=== PATIENT | male | born 1995 | race Caucasian/White ===

== ENCOUNTER 2017-07-27 05:14 | Emergency (ER) | payer OTHER ==
[~2017-07-27] VITALS: Ht 185.4 cm; Wt 121.6 kg
[~2017-07-27 05:14] MED LIST: ALBUTEROL0.09 MG/A2 INH; ALLEGRA-D 24 H1 EACH PO; AMOXICILLIN500 MG PO; AUGMENTIN 875 M1 TAB PO; AVPAK AZITHROM250 M1 PO; CEFUROXIME AXE250 MG PO; CIPRODEX 0.3%-7.5 ML OT; CIPROFLOXACIN500 MG PO; CLARITIN10 MG PO; CORDROL20 MG PO; FLONASE 0.05% 121 EA NAS; FLONASE ALLERG9.9 ML NAS; HYCODAN 1.5 MG480 ML PO; MEDROL DOSEPAK4 MG PO; MELOXICAM7.5 MG PO; MOTRIN800 MG PO; NAPROSYN500 MG PO; NORCO 325 MG-51 TAB PO; OMEPRAZOLE40 MG PO; PARAFON FORTE500 MG PO; PHENERGAN W/DM120 ML PO; PREDNICOT20 MG PO; PREDNISONE10 MG PO; PROAIR HFA0.09 MG/AC IH; ROBITUSSIN AC 110 ML PO; TESSALON PERLE100 M1 PO; TESSALON PERLE200 MG PO; ULTRAM50 MG PO; VIBRAMYCIN100 MG PO; ZITHROMAX Z PA250 MG PO; ZITHROMAX Z-PA250 MG PO; ZOFRAN ODT4 MG SL; ZYRTEC10 MG PO; [UNRECOGNIZED DRUG - OTHER] PO
[2017-07-27 05:55] LABS: BASO % 0.3 % (0.0-1.0); EOS # 0.3 10*3/uL (0.0-0.4); EOS % 2.6 % (1.0-4.0); HEMATOCRIT 46.5 % (42.0-52.0); HEMOGLOBIN 16.4 g/dl (14.0-18.0); LYMPH # 2.1 10*3/uL (1.3-4.4); LYMPH % 20.5 % (27.0-41.0); MEAN CELL VOLUME 86.1 fl (80.0-94.0); MEAN CORPUSCULAR HGB 30.4 pg (27.0-31.0); MEAN CORPUSCULAR HGB CONC 35.3 g/dl (33.0-37.0); MEAN PLATELET VOLUME 9.8 fl (9.6-12.3); MONO # 0.7 10*3/uL (0.1-1.0); MONO % 6.6 % (3.0-9.0); NEUT # 7.2 10*3/uL (2.3-7.9); NEUT % 69.8 % (47.0-73.0); PLATELET COUNT AUTOMATED 291 10*3/uL (130-400); RED CELL DISTRI WIDTH 11.9 % (0-14.5); WHITE BLOOD COUNT 10.3 10*3/uL (4.8-10.8)
[2017-07-27 06:04] LABS: BILIRUBIN NEGATIVE (NEGATIVE); BLOOD NEGATIVE (NEGATIVE); CLARITY CLEAR (CLEAR); COLOR YELLOW (YELLOW); GLUCOSE NEGATIVE (NEGATIVE); KETONE NEGATIVE (NEGATIVE); LEUKO ESTERASE NEGATIVE (NEGATIVE); NITRITE NEGATIVE (NEGATIVE); PH 5.5 (5.0-9.0); SPECIFIC GRAVITY >= 1.030 (1.005-1.030); UROBILINOGEN 0.2 E.U./dl (0.2-1.0)
[2017-07-27 06:11] LABS: ALBUMIN 4.3 gm/dl (3.1-4.5); ALKALINE PHOSPHATASE 113 U/L (45-117); BUN 14 mg/dl (7-24); CHLORIDE 103 mmol/L (98-107); CREATININE 1.15 mg/dL (0.70-1.30); LIPASE 89 U/L (73-393); POTASSIUM 3.8 mmol/L (3.5-5.1); SGOT/AST 17 IU/L (3-35); SGPT/ALT 37 U/L (12-78); SODIUM 138 mmol/L (136-145); TOTAL PROTEIN 8.4 gm/dL (6.4-8.2)
[2017-07-27 06:13] LABS: BACTERIA 1+; MUCOUS 1+
[2017-07-27] MEDS ORDERED: MIRALAX POWDER17 G1 PO (08:30)
== END 2017-07-27 09:09 | disposition home or self-care (01) ==
LOC: ED 05:14
PROVIDERS: Emergency Medicine Emergency Medical Services
DX: R10.13 Epigastric pain (principal); Z79.899 Other long term (current) drug therapy; Z88.2 Allergy status to sulfonamides

== ENCOUNTER 2017-08-17 11:37 | Emergency (ER) | payer OTHER ==
[~2017-08-17] VITALS: Wt 121.6 kg
[~2017-08-17 11:37] MED LIST changes: +MIRALAX POWDER17 G1 PO
[2017-08-17] MEDS ORDERED: CIPROFLOXACIN 110 ML OPH (11:44)
[2017-08-17 12:03] LABS: BILIRUBIN NEGATIVE (NEGATIVE); BLOOD NEGATIVE (NEGATIVE); CLARITY SL CLOUDY (CLEAR); COLOR YELLOW (YELLOW); GLUCOSE NEGATIVE (NEGATIVE); KETONE NEGATIVE (NEGATIVE); LEUKO ESTERASE NEGATIVE (NEGATIVE); NITRITE NEGATIVE (NEGATIVE); PH 5.5 (5.0-9.0); SPECIFIC GRAVITY >= 1.030 (1.005-1.030); UROBILINOGEN 0.2 E.U./dl (0.2-1.0)
[2017-08-17 12:05] LABS: BASO % 0.3 % (0.0-1.0); EOS # 0.3 10*3/uL (0.0-0.4); EOS % 4.5 % (1.0-4.0); HEMATOCRIT 43.9 % (42.0-52.0); HEMOGLOBIN 15.3 g/dl (14.0-18.0); LYMPH # 1.6 10*3/uL (1.3-4.4); LYMPH % 23.9 % (27.0-41.0); MEAN CELL VOLUME 87.6 fl (80.0-94.0); MEAN CORPUSCULAR HGB 30.5 pg (27.0-31.0); MEAN CORPUSCULAR HGB CONC 34.9 g/dl (33.0-37.0); MEAN PLATELET VOLUME 9.6 fl (9.6-12.3); MONO # 0.6 10*3/uL (0.1-1.0); MONO % 9.7 % (3.0-9.0); NEUT % 61.4 % (47.0-73.0); PLATELET COUNT AUTOMATED 261 10*3/uL (130-400); RED BLOOD COUNT 5.01 10*6/uL (4.50-5.90); RED CELL DISTRI WIDTH 11.9 % (0-14.5); WHITE BLOOD COUNT 6.5 10*3/uL (4.8-10.8)
[2017-08-17 12:15] LABS: BACTERIA 1+; MUCOUS 4+; RBC 0-2 rbc/hpf (0-2)
[2017-08-17 12:21] LABS: ALBUMIN 3.8 gm/dl (3.1-4.5); ALKALINE PHOSPHATASE 97 U/L (45-117); BUN 11 mg/dl (7-24); CHLORIDE 106 mmol/L (98-107); CREATININE 1.01 mg/dL (0.70-1.30); LIPASE 75 U/L (73-393); POTASSIUM 3.6 mmol/L (3.5-5.1); SGOT/AST 18 IU/L (3-35); SGPT/ALT 28 U/L (12-78); SODIUM 141 mmol/L (136-145); TOTAL PROTEIN 7.4 gm/dL (6.4-8.2)
[2017-08-17] MEDS ORDERED: PEPCID20 MG PO (12:50)
[2017-08-17] MEDS ORDERED: Zofran4 MG PO (12:50)
== END 2017-08-17 14:07 | disposition home or self-care (01) ==
LOC: ED 11:37
PROVIDERS: Physician Assistant
DX: R11.2 Nausea with vomiting, unspecified (principal); R19.7 Diarrhea, unspecified; R10.84 Generalized abdominal pain; Z79.899 Other long term (current) drug therapy; Z88.2 Allergy status to sulfonamides

== ENCOUNTER 2017-09-23 12:56 | Emergency (ER) | payer OTHER ==
[~2017-09-23] VITALS: Ht 185.4 cm; Wt 117.9 kg
[~2017-09-23 12:56] MED LIST changes: +CIPROFLOXACIN 110 ML OPH; +PEPCID20 MG PO; +Zofran4 MG PO
[2017-09-23] MEDS ORDERED: AUGMENTIN 875875 MG PO (13:21)
[2017-09-23] MEDS ORDERED: DELTASONE20 M1 PO (13:21)
== END 2017-09-23 13:40 | disposition home or self-care (01) ==
LOC: ED 12:56
DX: J01.90 Acute sinusitis, unspecified (principal); J40 Bronchitis, not specified as acute or chronic; Z88.2 Allergy status to sulfonamides

== ENCOUNTER 2017-10-13 22:14 | Emergency (ER) | payer OTHER ==
[~2017-10-13] VITALS: Ht 185.4 cm; Wt 117.9 kg
[~2017-10-13 22:14] MED LIST changes: +AUGMENTIN 875875 MG PO; +DELTASONE20 M1 PO
[2017-10-13 22:40] LABS: BILIRUBIN NEGATIVE (NEGATIVE); BLOOD NEGATIVE (NEGATIVE); CLARITY CLEAR (CLEAR); COLOR YELLOW (YELLOW); GLUCOSE NEGATIVE (NEGATIVE); KETONE NEGATIVE (NEGATIVE); LEUKO ESTERASE NEGATIVE (NEGATIVE); NITRITE NEGATIVE (NEGATIVE); PH 5.5 (5.0-9.0); SPECIFIC GRAVITY 1.025 (1.005-1.030); UROBILINOGEN 0.2 E.U./dl (0.2-1.0)
[2017-10-13 22:47] LABS: BACTERIA TRACE; EPITHELIAL CELLS 0-2
[2017-10-13 23:09] LABS: BASO % 0.5 % (0.0-1.0); EOS # 0.4 10*3/uL (0.0-0.4); EOS % 5.4 % (1.0-4.0); HEMATOCRIT 42.5 % (42.0-52.0); HEMOGLOBIN 14.9 g/dl (14.0-18.0); LYMPH % 27.3 % (27.0-41.0); MEAN CELL VOLUME 86.9 fl (80.0-94.0); MEAN CORPUSCULAR HGB 30.5 pg (27.0-31.0); MEAN CORPUSCULAR HGB CONC 35.1 g/dl (33.0-37.0); MEAN PLATELET VOLUME 9.6 fl (9.6-12.3); MONO # 0.5 10*3/uL (0.1-1.0); MONO % 7.2 % (3.0-9.0); NEUT # 4.4 10*3/uL (2.3-7.9); NEUT % 59.5 % (47.0-73.0); PLATELET COUNT AUTOMATED 246 10*3/uL (130-400); RED BLOOD COUNT 4.89 10*6/uL (4.50-5.90); RED CELL DISTRI WIDTH 11.5 % (0-14.5); WHITE BLOOD COUNT 7.4 10*3/uL (4.8-10.8)
[2017-10-13 23:15] LABS: CHLORIDE 105 mmol/L (98-107); POTASSIUM 3.8 mmol/L (3.5-5.1); SODIUM 140 mmol/L (136-145)
[2017-10-13 23:26] LABS: ALBUMIN 3.8 gm/dl (3.1-4.5); BUN 24 mg/dl (7-24); LIPASE 102 U/L (73-393)
[2017-10-13 23:30] LABS: ALKALINE PHOSPHATASE 93 U/L (45-117); CREATININE 1.17 mg/dL (0.70-1.30); SGOT/AST 26 IU/L (3-35); SGPT/ALT 50 U/L (12-78); TOTAL PROTEIN 7.2 gm/dL (6.4-8.2)
[2017-10-14] MEDS ORDERED: ZOFRAN ODT4 MG SL (00:23)
== END 2017-10-14 01:34 | disposition home or self-care (01) ==
LOC: ED 22:14
PROVIDERS: Emergency Medicine Emergency Medical Services; Physician Assistant
DX: R11.2 Nausea with vomiting, unspecified (principal); R51 Headache; R50.9 Fever, unspecified; F17.200 Nicotine dependence, unspecified, uncomplicated; Z88.2 Allergy status to sulfonamides

== ENCOUNTER 2017-11-24 12:29 | Emergency (ER) | payer OTHER ==
[2017-11-24] MEDS ORDERED: PREDNISONE10 MG PO (13:25)
[2017-11-24] MEDS ORDERED: FLONASE ALLERG9.9 ML NAS (13:25)
[2017-11-24] MEDS ORDERED: CLARITIN10 MG PO (13:25)
[2017-11-24] MEDS ORDERED: ROBITUSSIN DM 105 ML PO (13:25)
== END 2017-11-24 14:50 | disposition home or self-care (01) ==
LOC: ED 12:29
DX: J20.9 Acute bronchitis, unspecified (principal); R03.0 Elevated blood-pressure reading, without diagnosis of hypertension; Z79.899 Other long term (current) drug therapy; Z88.2 Allergy status to sulfonamides

== ENCOUNTER 2021-01-08 19:47 | Emergency (ER) | payer SELFPAY ==
[~2021-01-08] VITALS: Ht 182.8 cm; Wt 121.6 kg
[~2021-01-08 19:47] MED LIST changes: +AMOXICILLIN500 M2 PO; +PREDNISONE20 M1 PO; +ROBAXIN500 M1 PO; +ROBITUSSIN DM 105 ML PO
[2021-01-08 21:16] LABS: BASO % 0.5 % (0.0-1.0); EOS # 0.4 10*3/uL (0.0-0.4); EOS % 5.1 % (1.0-4.0); HEMATOCRIT 42.7 % (42.0-52.0); LYMPH # 2.5 10*3/uL (1.3-4.4); LYMPH % 32.6 % (27.0-41.0); MEAN CELL VOLUME 89.7 fl (80.0-94.0); MEAN CORPUSCULAR HGB 30.5 pg (27.0-31.0); MEAN PLATELET VOLUME 10.2 fl (9.6-12.3); MONO # 0.6 10*3/uL (0.1-1.0); NEUT # 4.1 10*3/uL (2.3-7.9); NEUT % 53.5 % (47.0-73.0); PLATELET COUNT AUTOMATED 328 10*3/uL (130-400); RED BLOOD COUNT 4.76 10*6/uL (4.50-5.90); RED CELL DISTRI WIDTH 11.9 % (0-14.5); WHITE BLOOD COUNT 7.7 10*3/uL (4.8-10.8)
[2021-01-08 21:30] LABS: ALBUMIN 3.7 gm/dl (3.1-4.5); ALKALINE PHOSPHATASE 85 U/L (45-117); BUN 16 mg/dl (7-24); CHLORIDE 106 mmol/L (98-107); CREATININE 1.11 mg/dL (0.70-1.30); LIPASE 79 U/L (73-393); POTASSIUM 4.3 mmol/L (3.5-5.1); SGOT/AST 40 IU/L (3-35); SGPT/ALT 42 U/L (12-78); SODIUM 140 mmol/L (136-145); TOTAL PROTEIN 7.4 gm/dL (6.4-8.2)
== END 2021-01-08 22:37 | disposition home or self-care (01) ==
LOC: ED 19:47
PROVIDERS: Physician Assistant
DX: K52.9 Noninfective gastroenteritis and colitis, unspecified (principal); F17.200 Nicotine dependence, unspecified, uncomplicated; Z79.899 Other long term (current) drug therapy; Z88.2 Allergy status to sulfonamides

== ENCOUNTER 2021-11-01 03:41 | Emergency (ER) | payer SELFPAY ==
[~2021-11-01] VITALS: Ht 175.2 cm; Wt 131.5 kg
[2021-11-01] MEDS ORDERED: CEPHALEXIN500 M1 PO (05:17)
== END 2021-11-01 05:34 | disposition home or self-care (01) ==
LOC: ED 03:41
DX: S91.312A Laceration without foreign body, left foot, initial encounter (principal); W25.XXXA Contact with sharp glass, initial encounter; Y93.89 Activity, other specified; Y92.89 Other specified places as the place of occurrence of the external cause; Y99.8 Other external cause status

== ENCOUNTER 2023-08-29 16:05 | Emergency (ER) | payer OTHER ==
[~2023-08-29] VITALS: Ht 185.4 cm; Wt 117.0 kg
[~2023-08-29 16:05] MED LIST changes: +CEPHALEXIN500 M1 PO
[2023-08-29 17:48] LABS: BASO % 0.4 % (0.0-1.0); EOS # 0.2 10*3/uL (0.0-0.4); EOS % 4.2 % (1.0-4.0); HEMATOCRIT 42.3 % (42.0-52.0); LYMPH # 1.9 10*3/uL (1.3-4.4); LYMPH % 34.8 % (27.0-41.0); MEAN CELL VOLUME 87.2 fl (80.0-94.0); MEAN CORPUSCULAR HGB 30.9 pg (27.0-31.0); MEAN CORPUSCULAR HGB CONC 35.5 g/dl (33.0-37.0); MEAN PLATELET VOLUME 9.1 fl (9.6-12.3); MONO # 0.5 10*3/uL (0.1-1.0); MONO % 9.8 % (3.0-9.0); NEUT # 2.8 10*3/uL (2.3-7.9); NEUT % 50.6 % (47.0-73.0); PLATELET COUNT AUTOMATED 274 10*3/uL (130-400); RED BLOOD COUNT 4.85 10*6/uL (4.50-5.90); RED CELL DISTRI WIDTH 11.4 % (0-14.5); WHITE BLOOD COUNT 5.4 10*3/uL (4.8-10.8)
[2023-08-29 18:09] LABS: ALKALINE PHOSPHATASE 70 U/L (46-116); BUN 16 mg/dl (9-23); CHLORIDE 109 mmol/L (98-107); SGPT/ALT 23 U/L (10-49)
[2023-08-29] MEDS ORDERED: ZITHROMAX250 MG PO (18:30)
== END 2023-08-29 18:34 | disposition home or self-care (01) ==
LOC: ED 16:05
PROVIDERS: Nurse Practitioner Family
DX: J02.0 Streptococcal pharyngitis (principal); Z88.2 Allergy status to sulfonamides; Z88.8 Allergy status to other drugs, medicaments and biological substances; Z98.890 Other specified postprocedural states; F17.210 Nicotine dependence, cigarettes, uncomplicated

== ENCOUNTER 2023-09-28 08:11 | Emergency (ER) | payer OTHER ==
[~2023-09-28] VITALS: Ht 185.4 cm; Wt 117.9 kg
[~2023-09-28 08:11] MED LIST changes: +ZITHROMAX250 MG PO
[2023-09-28] MEDS ORDERED: INDOMETHACIN50 MG PO (08:23)
[2023-09-28] MEDS ORDERED: NAPROXEN500 MG PO (09:25)
== END 2023-09-28 09:40 | disposition home or self-care (01) ==
LOC: ED 08:11
DX: M72.2 Plantar fascial fibromatosis (principal); Z88.2 Allergy status to sulfonamides; Z88.8 Allergy status to other drugs, medicaments and biological substances; Z98.890 Other specified postprocedural states

== ENCOUNTER 2023-10-31 18:21 | Emergency (ER) | payer OTHER ==
[~2023-10-31] VITALS: Ht 185.4 cm; Wt 117.9 kg
[~2023-10-31 18:21] MED LIST changes: +INDOMETHACIN50 MG PO; +NAPROXEN500 MG PO
[2023-10-31] MEDS ORDERED: TAMIFLU 75MG CA75 MG PO (20:14)
== END 2023-10-31 20:56 | disposition home or self-care (01) ==
LOC: ED 18:21
DX: J10.1 Influenza due to other identified influenza virus with other respiratory manifestations (principal); R11.2 Nausea with vomiting, unspecified; R51.9 Headache, unspecified; Z20.822 Contact with and (suspected) exposure to COVID-19; Z88.2 Allergy status to sulfonamides; Z88.8 Allergy status to other drugs, medicaments and biological substances; Z98.890 Other specified postprocedural states